=== PATIENT | female | born 1985 | race Caucasian/White ===

== ENCOUNTER → 2021-05-01 | Outpatient (CLI) | payer OTHER ==
[~2021-05-01] MED LIST: AEROCHAMBER1 EA XX; BUTALB-ACETAMI1 EACH PO; IBUPROFEN600 MG PO; K-DUR TAB 20 M20 MEQ PO; KLONOPIN TAB 00.5 MG PO; VENTOLIN HFA 66.7 GM INH
== END ==
LOC: EXRD 11:15
DX: R60.0 Localized edema (principal); M79.606 Pain in leg, unspecified
CPT/HCPCS: 93922; 93925

== ENCOUNTER → 2022-06-18 | Outpatient (CLI) | payer OTHER | LOC: KOH-I 06-15 10:30 | DX: R14.0 Abdominal distension (gaseous) (principal) | CPT/HCPCS: 76856 ==